=== PATIENT | female | born 1990 | race African-American/Black ===

== ENCOUNTER 2022-02-21 20:21 | Emergency (ER) | payer MEDICAID ==
[~2022-02-21] VITALS: Ht 170.2 cm; Wt 63.5 kg
[2022-02-21 20:40] VITALS: BP_SYST 122
--- NOTE | 2022-02-21 20:40 | NUR ---
Patient triaged and placed in waiting room. VSS and patient appears in no acute distress at this time. Acwaiting available bed, and MD notified of need for MSE.
--- NOTE | 2022-02-21 23:10 | NUR ---
KATIE Dumont at bedside examining patient.
--- NOTE | 2022-02-22 00:07 | NUR ---
Patient given written and verbal discharge instructions and verbalizes understanding. ER MD discussed with patient the results and treatment provided. Patient in stable condition. ID arm band removed. no Rx of given. Patient educated on pain management and to follow up with PMD. Pain Scale 0/10. Opportunity for questions provided and answered. Medication side effect fact sheet provided.
[2022-02-22 00:10] VITALS: BP_SYST 115
== END 2022-02-22 00:10 | disposition home or self-care (01) ==
LOC: SED 20:21
DX: B34.9 Viral infection, unspecified (principal); R05.9 Cough, unspecified; R09.81 Nasal congestion; Z79.899 Other long term (current) drug therapy; Z20.822 Contact with and (suspected) exposure to COVID-19
CPT/HCPCS: 36415; 99283